=== PATIENT | male | born 1950 | race Caucasian/White ===

== ENCOUNTER 2018-10-13 07:07 | Day surgery (SDC) | payer OTHER ==
[2018-10-12 15:31] VITALS: BMI 31.8
[2018-10-13] MEDS ORDERED: LIDOCAINE HCL/PF 2% SDV 5ML VIAL ONE (08:00)
[2018-10-13] MEDS ORDERED: PROPOFOL 20 ML ONE (08:01)
[2018-10-13 08:55] VITALS: TEMP 97.6
[2018-10-13 09:22] VITALS: BP 115/75; PULSE 88
== END 2018-10-13 09:25 | disposition home or self-care (01) ==
LOC: FASU 07:07
PROVIDERS: ATTEND Internal Medicine Gastroenterology
PROC: 0DJD8ZZ Inspection of Lower Intestinal Tract, Via Natural or Artificial Opening Endoscopic (ICD-10-PCS; principal; 2018-10-13 08:30)
DX: Z86.010 Personal history of colon polyps (principal); K57.30 Diverticulosis of large intestine without perforation or abscess without bleeding